=== PATIENT | male | born 1970 | race American Indian/Alaskan Native ===

== ENCOUNTER 2019-02-04 14:58 | Emergency (ER) | payer SELFPAY ==
[2019-02-04] MEDS ORDERED: ACETAMINOPHEN 325 MG TAB PO ONE (15:19)
--- NOTE | 2019-02-04 15:19 | Event Note ---
ED Screening Note ED Screening Note: pt presents sore throat two days ago + pain with swallowing no sick contacts fever cough PMHx HTN no allergies to meds +smoker This initial assessment/diagnostic orders/clinical plan/treatment(s) is/are subject to change based on patients health status, clinical progression and re- assessment by fellow clinical providers in the ED. Further treatment and workup at subsequent clinical providers discretion. Patient/guardian urged not to elope from the ED as their condition may be serious if not clinically assessed and managed. Initial orders include: rapid strep sent given tylenol
[2019-02-04] MEDS ORDERED: ACETAMINOPHEN 325 MG TAB ONE (15:22)
--- NOTE | 2019-02-04 16:01 | Emergency Department Report ---
ED ENT HPI - General Chief complaint: Sore Throat Stated complaint: STREP THROAT Time Seen by Provider: 02/04/19 15:15 Source: patient Mode of arrival: Ambulatory Limitations: No Limitations - History of Present Illness Initial comments: 48-year-old -J[place]ican male presents to the emergency room for complaint of sore throat and pain with swallowing 3 days. Patient reports she's had a fever. Patient reports he took some NyQuil cold and flu this morning. Patient reports a past medical history of hypertension does not know the name of his blo od pressure medicine and did not take it this morning. Patient denies any known drug allergies. MD complaint: sore throat, difficulty swallowing Onset/Timin -: days(s) Location: throat Severity scale (0 -10): 10 Quality: burning, stabbing, sharp Consistency: constant Improves with: none Worsens with: swallowing Associated Symptoms: fever, pain with swallowing, sore throat. denies: cough, gum swelling, toothache, tinnitus, hearing loss, discharge from ear, rhinorrhea - Related Data Allergies Allergy/AdvReac Type Severity Reaction Status Date / Time No Known Allergies Allergy Verified 02/04/19 15:00 ED Dental HPI - General Chief complaint: Sore Throat Stated complaint: STREP THROAT Time Seen by Provider: 02/04/19 15:15 Source: patient Mode of arrival: Ambulatory Limitations: No Limitations - Related Data Allergies Allergy/AdvReac Type Severity Reaction Status Date / Time No Known Allergies Allergy Verified 02/04/19 15:00 ED Review of Systems ROS: Stated complaint: STREP THROAT Other details as noted in HPI Comment: All other systems reviewed and negative Constitutional: fever ENT: throat pain ED Past Medical Hx - Past Medical History Previous Medical History?: Yes Hx Hypertension: Yes - Surgical History Past Surgical History?: No - Social History Smoking Status: Current Every Day Smoker Substance Use Type: Alcohol ED Physical Exam - General Limitations: No Limitations General appearance: alert, in no apparent distress, other (nontoxic in appearance) - Head Head exam: Present: atraumatic, normocephalic - Eye Eye exam: Present: normal appearance - ENT ENT exam: Present: mucous membranes moist - Expanded ENT Exam Expanded Throat exam: Positive: tonsillar erythema, tonsillomegaly. Negative: tonsillar exudate - Neck Neck exam: Present: tenderness, lymphadenopathy - Respiratory Respiratory exam: Present: normal lung sounds bilaterally. Absent: respiratory distress - Cardiovascular Cardiovascular Exam: Present: tachycardia - GI/Abdominal GI/Abdominal exam: Present: soft, normal bowel sounds - Neurological Exam Neurological exam: Present: alert, oriented X3 - Psychiatric Psychiatric exam: Present: normal affect, normal mood - Skin Skin exam: Present: warm, dry, intact, normal color. Absent: rash ED Course Vital Signs 02/04/19 15:15 Temperature 102.3 F H Pulse Rate 122 H Respiratory 18 Rate Blood Pressure 160/107 O2 Sat by Pulse 95 Oximetry ED Medical Decision Making - Medical Decision Making 48-year-old -J[place]ican male presents to the emergency room for complaint of sore throat and pain with swallowing 3 days. Patient reports she's had a fever. Patient reports he took some NyQuil cold and flu this morning. Patient reports a past medical history of hypertension does not know the name of his blood pressure medicine and did not take it this morning. Patient denies any known drug allergies. Rapid strep has been sent to the lab. Patient's given Tylenol for pain management. Strep test positive. Patient be given penicillin G 1.2 million units IM. Discussed the patient he needs to take [id number] ibuprofen or Tylenol for pain management and fever hospital intern. Patient is increase his fluid intake advance his diet as tolerated. Critical care attestation.: If time is entered above; I have spent that time in minutes in the direct care of this critically ill patient, excluding procedure time. ED Disposition Clinical Impression: Streptococcal sore throat Disposition: DC-01 TO HOME OR SELFCARE Is pt being admited?: No Does the pt Need Aspirin: No Condition: Stable Instructions: Strep Throat (ED) Additional Instructions: Chest positive for strep he had been treated. Continue with Tylenol and/or Motr in for fever hospital intern and pain management. Increase her fluid intake advance the diet as tolerated follow up with her primary care provider if his symptoms persist or gets worse. Referrals: [facility] [Outside] - 3-5 Days Forms: Work/School Release Form(ED)
[2019-02-04] MEDS ORDERED: PENICILLIN G BENZATHINE 1.2 MILLION UNIT/2 ML INJ IM ONE ×2 (16:59→17:02)
[2019-02-04 17:09] VITALS: BP 151/84
== END 2019-02-04 17:32 | disposition home or self-care (01) ==
LOC: ED 14:58
DX: J02.0 Streptococcal pharyngitis (principal); I10 Essential (primary) hypertension; F17.200 Nicotine dependence, unspecified, uncomplicated
CPT/HCPCS: 87430; 96372; 99283; J0561

== ENCOUNTER 2019-02-09 05:17 | Emergency (ER) | payer SELFPAY ==
[2019-02-09 05:24] VITALS: BP 160/94
--- NOTE | 2019-02-09 05:50 | Emergency Department Report ---
ED General Adult HPI - General Chief complaint: Eye Problems Stated complaint: PINK EYE Source: patient Mode of arrival: Ambulatory Limitations: No Limitations - History of Present Illness Initial comments: Patient is a 48-year-old -Thai male who presented to the ED with complaint of acute onset persistent right ankle pain with erythematous conjunctiva with purulent discharge and matting for the last 24 hours. Patient denies fever, chills, nausea, vomiting, nasal and sinus congestion, dizziness, vision loss, cough or nasal and sinus congestion. MD Complaint: right eye pain -: Sudden, hour(s) (24) Location: eyes (right) Radiation: non-radiation Severity scale (0 -10): 3 Quality: burning, aching, constant Consistency: constant Improves with: none Worsens with: none Associated Symptoms: denies other symptoms. denies: confusion, chest pain, cough, diaphoresis, fever/chills, headaches, loss of appetite, malaise, nausea/vomiting, rash, seizure, shortness of breath, syncope, weakness Treatments Prior to Arrival: none - Related Data Previous Rx's Medication Instructions Recorded Last Taken Type Gentamicin 0.3% Ophth Soln 1 drops OP Q4H #5 ml 02/09/19 Unknown Rx Ibuprofen [Motrin] 600 mg PO Q8H PRN #20 tablet 02/09/19 Unknown Rx Allergies Allergy/AdvReac Type Severity Reaction Status Date / Time No Known Allergies Allergy Verified 02/04/19 15:00 ED Review of Systems ROS: Stated complaint: PINK EYE Other details as noted in HPI Constitutional: denies: chills, fever Eyes: eye pain (right eye), eye discharge (right). denies: vision change ENT: denies: ear pain, throat pain Respiratory: denies: cough, shortness of breath, wheezing Cardiovascular: denies: chest pain, palpitations Endocrine: no symptoms reported Gastrointestinal: denies: abdominal pain, nausea, diarrhea Genitourinary: denies: urgency, dysuria Musculoskeletal: denies: back pain, joint swelling, arthralgia Skin: denies: rash, lesions Neurological: denies: headache, weakness, paresthesias Psychiatric: denies: anxiety, depression Hematological/Lymphatic: denies: easy bleeding, easy bruising ED Past Medical Hx - Past Medical History Previous Medical History?: Yes Hx Hypertension: Yes - Surgical History Past Surgical History?: No - Social History Smoking Status: Current Every Day Smoker Substance Use Type: None - Medications Home Medications: Home Medications Medication Instructions Recorded Confirmed Last Taken Type Gentamicin 0.3% Ophth Soln 1 drops OP Q4H #5 ml 02/09/19 Unknown Rx Ibuprofen [Motrin] 600 mg PO Q8H PRN #20 tablet 02/09/19 Unknown Rx ED Physical Exam - General Limitations: No Limitations General appearance: alert, in no apparent distress - Head Head exam: Present: atraumatic, normocephalic, normal inspection - Eye Eye exam: Present: normal appearance, PERRL, EOMI, other (erythematous right conjunctiva with purulent discharge and matting of the right eye) Pupils: Present: normal accommodation - ENT ENT exam: Present: normal exam, normal orophraynx, mucous membranes moist, TM's normal bilaterally, normal external ear exam - Neck Neck exam: Present: normal inspection, full ROM - Respiratory Respiratory exam: Present: normal lung sounds bilaterally. Absent: respiratory distress, wheezes, rales, stridor, chest wall tenderness, accessory muscle use, decreased breath sounds, prolonged expiratory - Cardiovascular Cardiovascular Exam: Present: regular rate, normal rhythm, normal heart sounds. Absent: systolic murmur, diastolic murmur, rubs, gallop - GI/Abdominal GI/Abdominal exam: Present: soft, normal bowel sounds. Absent: tenderness, guarding, rebound, hyperactive bowel sounds, hypoactive bowel sounds, organomegaly - Rectal Rectal exam: Present: deferred - Extremities Exam Extremities exam: Present: normal inspection, full ROM, normal capillary refill - Back Exam Back exam: Present: normal inspection, full ROM. Absent: CVA tenderness (L), muscle spasm - Neurological Exam Neurological exam: Present: alert, oriented X3, CN II-XII intact, normal gait, reflexes normal - Psychiatric Psychiatric exam: Present: normal affect, normal mood - Skin Skin exam: Present: warm, dry, intact, normal color. Absent: rash ED Course Vital Signs 02/09/19 05:18 Temperature 98.2 F Pulse Rate 84 Respiratory 18 Rate Blood Pressure 160/94 O2 Sat by Pulse 97 Oximetry ED Medical Decision Making - Medical Decision Making This is a 48-year-old male who presented to the ED with right eye pain with a matting and erythematous conjunctiva with purulent discharge for the last 24 hours. In the ED, patient is alert and oriented 3 and is not in distress. Patient was discharged home on medications and advised to follow-up with his primary care physician in 7-10 days for reevaluation or return to the ED immediately if symptoms get worse. - Differential Diagnosis acute conjunctivitis; right eye pain Critical care attestation.: If time is entered above; I have spent that time in minutes in the direct care of this critically ill patient, excluding procedure time. ED Disposition Clinical Impression: Acute bacterial conjunctivitis of right eye Disposition: DC- TO HOME OR SELFCARE Is pt being admited?: No Does the pt Need Aspirin: No Condition: Stable Instructions: Conjunctivitis (ED) Additional Instructions: Apply the medication to the affected eyes advice, take pain medications with food, drink plenty of fluids and follow-up with your primary care physician in 7-10 days for reevaluation. Return to the ED immediately if symptoms get worse. Prescriptions: Gentamicin 0.3% Ophth Soln 1 drops OP Q4H #5 ml Ibuprofen [Motrin] 600 mg PO Q8H PRN #20 tablet PRN Reason: Pain Referrals: [facility] [Outside] - 3-5 Days Forms: Work/School Release Form(ED) Time of Disposition: 05:47 Print Language: TURKISH
== END 2019-02-09 06:20 | disposition home or self-care (01) ==
LOC: ED 05:17
DX: H10.31 Unspecified acute conjunctivitis, right eye (principal); F17.200 Nicotine dependence, unspecified, uncomplicated; I10 Essential (primary) hypertension

== ENCOUNTER 2019-08-25 22:58 | Emergency (ER) | payer SELFPAY ==
[2019-08-26] MEDS ORDERED: amLODIPine 5 MG TAB PO ONE (00:24)
--- NOTE | 2019-08-26 00:33 | Emergency Department Report ---
HPI - General Chief Complaint: Headache Time Seen by Provider: 08/26/19 00:16 - HPI HPI: 49-year-old -Congolese male presents to the emergency department with a complaint of a 3-day history of intermittent posterior headache and blurry vision. Patient has been taking Aleve which does provide some transient relief. Patient presents with some elevated blood pressure and does admit to being out of his medication for the past 2 to 3 months. He does not remember the name of the medication. He is a tobacco smoker. He does not have any other past medical history. He does not have a primary care physician. He denies any fever, numbness, paresthesias, slurred speech, chest pain or shortness of breath. No recent travel or sick contacts at home. ED Past Medical Hx - Past Medical History Hx Hypertension: Yes - Social History Smoking Status: Current Every Day Smoker Substance Use Type: Alcohol, Marijuana - Medications Home Medications: Home Medications Medication Instructions Recorded Confirmed Last Taken Type Gentamicin 0.3% Ophth Soln 1 drops OP Q4H #5 ml 02/09/19 Unknown Rx Ibuprofen [Motrin] 600 mg PO Q8H PRN #20 tablet 02/09/19 Unknown Rx amLODIPine 10 mg PO DAILY #30 tab 08/26/19 Unknown Rx ED Review of Systems ROS: Stated complaint: HEADACHE AND BLURRED VISION Other details as noted in HPI Comment: All other systems reviewed and negative Constitutional: denies: chills, fever Eyes: vision change. denies: eye pain ENT: denies: ear pain, throat pain Respiratory: denies: cough, shortness of breath Cardiovascular: denies: chest pain, palpitations Gastrointestinal: denies: abdominal pain, vomiting Genitourinary: denies: dysuria, discharge Musculoskeletal: denies: back pain, arthralgia Skin: denies: rash, lesions Neurological: headache. denies: weakness, numbness, paresthesias, abnormal gait Physical Exam - Physical Exam Vital Signs: Vital Signs 08/25/19 23:09 Temperature 98.7 F Pulse Rate 79 Respiratory 18 Rate Blood Pressure 192/99 O2 Sat by Pulse 99 Oximetry Physical Exam: GENERAL: The patient is well-developed well-nourished. HENT: Normocephalic. Atraumatic. Patient has moist mucous membranes. EYES: Extraocular motions are intact. Visual acuity: OD 20/15, OS 20/40, OU 20/15. NECK: Supple. Trachea is midline. CHEST/LUNGS: Clear to auscultation. There is no respiratory distress noted. HEART/CARDIOVASCULAR: Regular. There is no tachycardia. ABDOMEN: Abdomen is soft, nontender. Patient has normal bowel sounds. There is no abdominal distention. SKIN: Skin is warm and dry. NEURO: The patient is awake, alert, and oriented. The patient is cooperative. The patient has no focal neurologic deficits. Normal speech. Cranial nerves II through XII grossly intact. No pronator drift. No dysmetria. No facial asymmetry. MUSCULOSKELETAL: There is no tenderness or deformity. There is no limitation range of motion. There is no evidence of acute injury. ED Course Vital Signs 08/25/19 23:09 Temperature 98.7 F Pulse Rate 79 Respiratory 18 Rate Blood Pressure 192/99 O2 Sat by Pulse 99 Oximetry ED Medical Decision Making - Lab Data Result diagrams: 08/26/19 01:13 08/26/19 01:13 - Radiology Data Radiology results: report reviewed CT head/brain wo con INDICATION / CLINICAL INFORMATION: Patient complains of a headache and pressure behind eyes.. TECHNIQUE: Axial CT imaging of the brain was obtained without contrast. Coronal and sagittal reformatted imaging obtained and reviewed. All CT scans at this location are performed using CT dose reduction for ALARA by means of automated exposure control. COMPARISON: None available. FINDINGS: No intracranial hemorrhage, mass, or midline shift. No extra-axial fluid collection or suggestion of acute territorial infarction. The ventricular system and basilar cisterns are unremarkable. Visualized paranasal sinuses and mastoid air cells are well aerated and clear. I see no evidence to suggest sinusitis. No significant calvarial abnormality. IMPRESSION: 1. Negative noncontrasted head CT scan. - Medical Decision Making This patient presents to the emergency department with complaint of a few days of some intermittent posterior headache, intermittent blurred vision. Patient also presents with elevated blood pressure. He does have a history of hypertension but has been noncompliant with his medications. Also, he is a tobacco smoker. On examination the patient does not have any focal, motor or sensory deficits and his cranial nerves are intact. He has an NIH stroke scale of 0. The patient's visual acuity is good except for in the left eye, which is a chronic issue for him since he was injured in the left eye as a child. Patient was given a dose of Norvasc and his blood pressure came down to a more reasonable level. CT scan of the head did not show any bleed, shift, mass, ischemia, or any other acute process. Patient's labs were unremarkable including CBC, metabolic panel and TSH level. The patient was reevaluated multiple times over multiple hours and is feeling improved. He will be discharged home to follow-up with both primary care and ophthalmology. He has b een started on Norvasc. We discussed dietary and lifestyle changes to make including a better diet and smoking cessation. He will keep a blood pressure log. The patient will return to the emergency department with any worsening of his symptoms or any acute distress. Critical Care Time: No Critical care attestation.: If time is entered above; I have spent that time in minutes in the direct care of this critically ill patient, excluding procedure time. ED Disposition Clinical Impression: Intermittent headache, Blurry vision Hypertension Qualifiers: Hypertension type: essential hypertension Qualified Code(s): I10 - Essential (primary) hypertension Disposition: TO HOME OR SELFCARE Is pt being admited?: No Condition: Stable Instructions: Acute Headache (ED), Hypertension (ED), Blurred Vision (ED) Additional Instructions: Please follow-up with a primary care physician in the next few days. I am also giving you a referral for a local commutator v ring assembler, Dr. Monster Shell, to follow-up regarding the blurred vision. Try and quit smoking. Try and stay away from foods that are high in salt and caffeinated products. Keep a blood pressure log. I am starting you on a blood pressure medication called Norvasc/amlodipine. This medication is taken once per day, usually in the morning. Return to the emergency department with any worsening of your symptoms or any acute distress. Prescriptions: amLODIPine 10 mg PO DAILY #30 tab Referrals: PRIMARY MD ZAHIRA [Primary Care Provider] - 3-5 Days MONSTER SHELL MD [Staff Physician] - 3-5 Days [facility] [Outside] - 3-5 Days [facility] [Outside] - 3-5 Days [facility] [Provider Group] - 3-5 Days Time of Disposition: 03:21
--- NOTE | 2019-08-26 00:47 | Cat Scan Report ---
CT head/brain wo con INDICATION / CLINICAL INFORMATION: Patient complains of a headache and pressure behind eyes.. TECHNIQUE: Axial CT imaging of the brain was obtained without contrast. Coronal and sagittal reformatted imaging obtained and reviewed. All CT scans at this location are performed using CT dose reduction for ALAR A by means of automated exposure control. COMPARISON: None available. FINDINGS: No intracranial hemorrhage, mass, or midline shift. No extra-axial fluid collection or suggestion of acute territorial infarction. The ventricular system and basilar cisterns are unremarkable. Visualized paranasal sinuses and mastoid air cells are well aerated and clear. I see no evidence to s uggest sinusitis. No significant calvarial abnormality. IMPRESSION: 1. Negative noncontrasted head CT scan. Signer Name: Sirena Davis MD Signed: 08/26/2019 12:42 AM Workstation Name: [id number]
[2019-08-26 01:49] LABS: Basophils % (Auto) 0.4 % (0.0-1.8); Eosinophils # (Auto) 0.1 K/mm3 (0.0-0.4); Eosinophils % (Auto) 1.4 % (0.0-4.3); Hematocrit 44.3 % (35.5-45.6); Hemoglobin 14.9 gm/dl (11.8-15.2); Lymphocytes # (Auto) 2.8 K/mm3 (1.2-5.4); Lymphocytes % (Auto) 31.3 % (13.4-35.0); Mean Corpuscular HGB Conc 34 % (32-34); Mean Corpuscular Volume 90 fl (84-94); Monocytes # (Auto) 0.4 K/mm3 (0.0-0.8); Monocytes % (Auto) 4.9 % (0.0-7.3); Platelet Count 189 K/mm3 (140-440); Red Blood Count 4.92 M/mm3 (3.65-5.03); Red Cell Distribution Width 14.6 % (13.2-15.2)
[2019-08-26 01:58] LABS: BUN/Creatinine Ratio 20; Blood Urea Nitrogen 22 mg/dL (9-20); Calcium 9.4 mg/dL (8.4-10.2); Hemolysis Index 7
[2019-08-26 03:30] VITALS: BP 194/106
== END 2019-08-26 03:31 | disposition home or self-care (01) ==
LOC: ED 22:58
DX: I10 Essential (primary) hypertension (principal); H53.8 Other visual disturbances; R51 Headache; F17.200 Nicotine dependence, unspecified, uncomplicated; F12.10 Cannabis abuse, uncomplicated; Z79.899 Other long term (current) drug therapy
CPT/HCPCS: 36415; 70450; 80048; 84443; 85025

== ENCOUNTER 2019-12-22 12:31 | Emergency (ER) | payer SELFPAY ==
[2019-12-22 13:38] VITALS: BP 171/103
--- NOTE | 2019-12-22 14:55 | Event Note ---
ED Screening Note Date of service: 12/22/19 Time: 14:53 ED Screening Note: This is a 49-year-old male presents the ED complaining of left flank pain x3 days. Patient states pain is worsened with coughing taking a deep breath. Denies fever/chills Past medical history high blood pressure This initial assessment/diagnostic orders/clinical plan/treatment(s) is/are subject to change based on patients health status, clinical progression and re- assessment by fellow clinical providers in the ED. Further treatment and workup at subsequent clinical providers discretion. Patient/guardian urged not to elope from the ED as their condition may be serious if not clinically assessed and managed. Initial orders include: Urinalysis. KUB. [email or web address]
--- NOTE | 2019-12-22 15:56 | XRay Report ---
ABDOMEN 1 VIEW INDICATION / CLINICAL INFORMATION: flank pain. COMPARISON: None available. FINDINGS: TUBES / LINES: None. BOWEL GAS PATTERN: No significant abnormality. FREE AIR / EXTRALUMINAL GAS: None seen. ADDITIONAL FINDINGS: No calcific densities visualized over the renal shadows. IMPRESSION: 1. No significant abnormality. Signer Name: Dony Yost MD Signed: 12/22/2019 3:51 PM Workstation Name: [id number]
[2019-12-22 16:39] LABS: Alanine Aminotransferase 18 units/L (7-56); Albumin 4.4 g/dL (3.9-5); BUN/Creatinine Ratio 11; Blood Urea Nitrogen 12 mg/dL (9-20); Calcium 9.5 mg/dL (8.4-10.2); Hemolysis Index 13
[2019-12-22 16:40] LABS: Bilirubin,Urine NEG (Negative); Blood,Urine NEG (Negative); Color,Urine Yellow (Yellow); Mucus,Urine FEW /HPF; Protein,Urine <15 mg/dL mg/dL (Negative); RBC,Urine < 1.0 /HPF (0.0-6.0); Urobilinogen,Urine < 2.0 mg/dL (<2.0)
[2019-12-22 16:51] LABS: Basophils # (Auto) 0.1 K/mm3 (0.0-0.1); Basophils % (Auto) 0.8 % (0.0-1.8); Eosinophils # (Auto) 0.1 K/mm3 (0.0-0.4); Eosinophils % (Auto) 1.2 % (0.0-4.3); Hematocrit 44.5 % (35.5-45.6); Hemoglobin 14.8 gm/dl (11.8-15.2); Lymphocytes # (Auto) 2.7 K/mm3 (1.2-5.4); Lymphocytes % (Auto) 24.3 % (13.4-35.0); Mean Corpuscular HGB Conc 33 % (32-34); Mean Corpuscular Volume 90 fl (84-94); Monocytes # (Auto) 0.3 K/mm3 (0.0-0.8); Platelet Count 192 K/mm3 (140-440); Red Blood Count 4.93 M/mm3 (3.65-5.03); Red Cell Distribution Width 13.5 % (13.2-15.2)
[2019-12-22] MEDS ORDERED: traMADol 50 MG TAB PO ONE (20:51)
--- NOTE | 2019-12-22 20:58 | Emergency Department Report ---
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 Cough is nonproductive there is been no fevers, chills, nausea vomiting, no chest pain, no shortness of breath. Patient denies dysuria, frequency, urgency ,or hematuria. No history of renal stones. Symptoms are relieved by nothing tried. MD Complaint: flank pain Severity scale (0 -10): 7 - Related Data Previous Rx's Medication Instructions Recorded Last Taken Type Gentamicin 0.3% Ophth Soln 1 drops OP Q4H #5 ml 02/09/19 Unknown Rx Ibuprofen [Motrin] 600 mg PO Q8H PRN #20 tablet 02/09/19 Unknown Rx amLODIPine 10 mg PO DAILY #30 tab 08/26/19 Unknown Rx Naproxen 500 mg PO BID PRN #30 tablet 12/22/19 Unknown Rx Allergies Allergy/AdvReac Type Severity Reaction Status Date / Time No Known Allergies Allergy Verified 08/25/19 23:10 ED Review of Systems ROS: Stated complaint: SIDE PAIN Other details as noted in HPI Constitutional: denies: chills, fever Eyes: denies: eye pain, eye discharge, vision change ENT: denies: ear pain, throat pain Respiratory: other (left flank and abdominal wall pain ). denies: cough, shortness of breath, wheezing Cardiovascular: denies: chest pain, palpitations Endocrine: no symptoms reported Gastrointestinal: denies: abdominal pain, nausea, diarrhea Genitourinary: denies: urgency, dysuria, frequency, hematuria, discharge, testicular pain, testicular mass Musculoskeletal: denies: back pain, joint swelling, arthralgia Skin: denies: rash, lesions Neurological: denies: headache, weakness, paresthesias Psychiatric: denies: anxiety, depression Hematological/Lymphatic: denies: easy bleeding, easy bruising ED Past Medical Hx - Past Medical History Previous Medical History?: Yes Hx Hypertension: Yes - Surgical History Past Surgical History?: No - Social History Smoking Status: Current Every Day Smoker Substance Use Type: Alcohol, Marijuana - Medications Home Medications: Home Medications Medication Instructions Recorded Confirmed Last Taken Type Gentamicin 0.3% Ophth Soln 1 drops OP Q4H #5 ml 02/09/19 Unknown Rx Ibuprofen [Motrin] 600 mg PO Q8H PRN #20 tablet 02/09/19 Unknown Rx amLODIPine 10 mg PO DAILY #30 tab 08/26/19 Unknown Rx Naproxen 500 mg PO BID PRN #30 tablet 12/22/19 Unknown Rx ED Physical Exam - General Limitations: No Limitations General appearance: alert, in no apparent distress - Head Head exam: Present: atraumatic, normocephalic - Eye Eye exam: Present: normal appearance, PERRL, EOMI Pupils: Present: normal accommodation - ENT ENT exam: Present: mucous membranes moist - Neck Neck exam: Present: normal inspection - Respiratory Respiratory exam: Present: normal lung sounds bilaterally. Absent: respiratory distress, wheezes, stridor, chest wall tenderness - Cardiovascular Cardiovascular Exam: Present: regular rate, normal rhythm, normal heart sounds - GI/Abdominal GI/Abdominal exam: Present: soft, tenderness (left lateral abd wall tenderness to deep palpation , no ecchymosis, no erythema, ), normal bowel sounds. Absent: distended, guarding, rebound, rigid, bruit, hernia - Expanded GI/Abdominal Exam Expanded GI/Abdominal exam: Absent: psoas sign, obturator sign, heel tap sign, Leggett's sign, Rovsing's sign, tenderness at Mcburney's Point, ascites - Rectal Rectal exam: Present: deferred - Extremities Exam Extremities exam: Present: normal inspection, full ROM, normal capillary refill. Absent: tenderness - Back Exam Back exam: Present: normal inspection, full ROM, tenderness, CVA tenderness (L), muscle spasm (left lateral abd wall ). Absent: CVA tenderness (R), paraspinal tenderness, vertebral tenderness - Neurological Exam Neurological exam: Present: alert, oriented X3, CN II-XII intact, normal gait - Psychiatric Psychiatric exam: Present: normal affect, normal mood - Skin Skin exam: Present: warm, dry, intact, normal color. Absent: rash ED Course Vital Signs 12/22/19 13:36 Temperature 98.3 F Pulse Rate 84 Respiratory 18 Rate Blood Pressure 171/103 [Right] O2 Sat by Pulse 95 Oximetry ED Medical Decision Making - Lab Data Result diagrams: 12/22/19 16:03 12/22/19 16:03 Labs 12/22/19 12/22/19 12/22/19 16:03 16:03 Unknown WBC 11.0 RBC 4.93 Hgb 14.8 Hct 44.5 MCV 90 MCH 30 MCHC 33 RDW 13.5 Plt Count 192 Lymph % (Auto) 24.3 [place] % (Auto) 3.0 Eos % (Auto) 1.2 Baso % (Auto) 0.8 Lymph # 2.7 [place] # 0.3 Eos # 0.1 Baso # 0.1 Seg Neutrophils % 70.7 H Seg Neutrophils # 7.8 H Sodium 140 Potassium 4.1 Chloride 101.7 Carbon Dioxide 24 Anion Gap 18 BUN 12 Creatinine 1.1 Estimated GFR > 60 BUN/Creatinine Ratio 11 Glucose 165 H Calcium 9.5 Total Bilirubin 0.30 AST 17 ALT 18 Alkaline Phosphatase 92 Total Protein 6.9 Albumin 4.4 Albumin/Globulin Ratio 1.8 Urine Color Yellow Urine Turbidity Clear Urine pH 5.0 Ur Specific [place] 1.011 Urine Protein <15 mg/dl Urine Glucose (UA) Neg Urine Ketones Neg Urine Blood Neg Urine Nitrite Neg Urine Bilirubin Neg Urine Urobilinogen < 2.0 Ur Leukocyte Esterase Neg Urine WBC (Auto) 1.0 Urine RBC (Auto) < 1.0 U Epithel Cells (Auto) < 1.0 Urine Mucus Few - Radiology Data Radiology results: report reviewed, image reviewed Findings Reporting MD: Dony Yost Dictation Time: December 22, 2019 14:51 Artificial Inseminator: Not available Major Account Manager Date: ABDOMEN 1 VIEW INDICATION / CLINICAL INFORMATION: flank pain. COMPARISON: None available. FINDINGS: TUBES / LINES: None. BOWEL GAS PATTERN: No significant abnormality. FREE AIR / EXTRALUMINAL GAS: None seen. ADDITIONAL FINDINGS: No calcific densities visualized over the renal shadows. IMPRESSION: 1. No significant abnormality. Signer Name: Dony Yost MD Signed: 12/22/2019 2:51 PM Workstation Name: [id number] - Medical Decision Making All labs normal KUB normal, patient is voiding without difficulty . Left lateral abdominal wall pain is reproducible to deep palpation. There is been no fever chills, no nausea vomiting, patient is tolerating p.o. intake without symptoms. There is likely abdominal wall strain. Plan NSAIDs PRN. Moist heat therapy. Follow-up primary care doctor in 2 to 3 days. Patient verbalizes agreement and understanding with discharge plan. Patient DC'd home in stable condition at this time. Critical care attestation.: If time is entered above; I have spent that time in minutes in the direct care of this critically ill patient, excluding procedure time. ED Disposition Clinical Impression: Abdominal wall strain Qualifiers: Encounter type: initial encounter Qualified Code(s): S39.011A - Strain of muscle, fascia and tendon of abdomen, initial encounter Disposition: DC-01 TO HOME OR SELFCARE Is pt being admited?: No Does the pt Need Aspirin: No Condition: Stable Instructions: Muscle Strain (ED) Prescriptions: Naproxen 500 mg PO BID PRN #30 tablet PRN Reason: pain Referrals: DARRICK THOMAS MD [Staff Physician] - 3-5 Days Forms: Work/School Release Form(ED) Time of Disposition: 21:01
== END 2019-12-22 21:05 | disposition home or self-care (01) ==
LOC: ED 12:31
DX: S39.011A Strain of muscle, fascia and tendon of abdomen, initial encounter (principal); F17.200 Nicotine dependence, unspecified, uncomplicated; F12.10 Cannabis abuse, uncomplicated; I10 Essential (primary) hypertension; X58.XXXA Exposure to other specified factors, initial encounter; Y93.89 Activity, other specified; Y92.89 Other specified places as the place of occurrence of the external cause; Y99.8 Other external cause status
CPT/HCPCS: 36415; 74018; 80053; 81001; 85025

== ENCOUNTER 2020-06-19 13:27 | Emergency (ER) | payer SELFPAY ==
[2020-06-19 13:37] VITALS: BP 198/109
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
== END 2020-06-19 13:54 | disposition left against medical advice (07) ==
LOC: ED 13:27
DX: R51.9 Headache, unspecified (principal); Z53.21 Procedure and treatment not carried out due to patient leaving prior to being seen by health care provider

== ENCOUNTER 2020-08-28 12:20 | Emergency (ER) | payer SELFPAY ==
[2020-08-28 13:02] VITALS: BP 159/93
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
== END 2020-08-28 14:18 | disposition home or self-care (01) ==
LOC: ED 12:20
DX: M25.552 Pain in left hip (principal); I10 Essential (primary) hypertension; F17.200 Nicotine dependence, unspecified, uncomplicated; Z79.899 Other long term (current) drug therapy
CPT/HCPCS: 99282